=== PATIENT | female | born 1990 | race Caucasian/White ===

== ENCOUNTER 2016-08-26 22:53 | Emergency (ER) | payer BC | END 2016-08-27 00:30 | disposition home or self-care (01) | LOC: ER1 22:53 | DX: R29.810 Facial weakness (principal); R68.84 Jaw pain; F41.9 Anxiety disorder, unspecified; Z88.0 Allergy status to penicillin; Z79.899 Other long term (current) drug therapy | CPT/HCPCS: 70450; 99283 ==